=== PATIENT | female | born 1990 | race Caucasian/White ===

== ENCOUNTER 2018-03-22 11:40 | Inpatient (IN) | payer OTHER ==
[~2018-03-22] VITALS: Ht 157.5 cm; Wt 111.1 kg
[~2018-03-22 11:40] MED LIST: FERR325E14 PO; ORE25 PO; VITD1000 PO
[2018-03-22 12:12] VITALS: BP 132/77
--- NOTE | 2018-03-22 12:55 | NUR ---
PT AMBULAES TO BED 12, REPORT GIVEN TO DOLORES FALK
--- NOTE | 2018-03-22 12:56 | NUR ---
27Y/F C/O VAGINAL BLEEDING. PT STATES " SHE HAS VAGINAL BLEEDING WITH DIZINESS, NAUSEA, HEAD ACHE, WITH INTERMITTENT CHEST PAIN X 3 MONTHS; DENIES CHEST PAIN AT THIS TIME; DENIES AB PAIN AT THIS TIME. PT'S SKIN IS PINK/WARM/DRY; AAOX4 WITH EVEN AND STEADY GAIT; LUNGS CLEAR BL; HR EVEN AND REGULAR; PATIENT STATES PAIN OF 0/10 AT THIS TIME; VSS; PATIENT POSITIONED FOR COMFORT; HOB ELEVATED; BEDRAILS UP X1; BED DOWN. ER MD MADE AWARE OF PT STATUS. HX; HTN RX; HYDROCHLOROTHIAZIDE
--- NOTE | 2018-03-22 13:04 | NUR ---
Patient being evaluated by physician at bedside.
[2018-03-22] MEDS ORDERED: NACL 0.9% 1,000 ML IV ONE (13:05)
[2018-03-22 14:12] LABS: BASOPHILS # (AUTO) 0.1 K/uL (0.00-0.22); BASOPHILS % (AUTO) 1.1 % (0.0-2.0); EOSINOPHILS # (AUTO) 0.2 K/uL (0-0.4); EOSINOPHILS % (AUTO) 3.1 % (0.0-4.0); HEMATOCRIT 25.4 % (36-48); HEMOGLOBIN 7.5 g/dL (12.0-16.0); LYMPHOCYTES # (AUTO) 2.2 K/uL (2.5-16.5); LYMPHOCYTES % (AUTO) 30.5 % (20.5-51.1); MEAN CORPUSCULAR HEMOGLOBIN 17 pg (27-31); MEAN CORPUSCULAR HGB CONC 29 g/dL (33-37); MEAN CORPUSCULAR VOLUME 57.6 fL (80-94); MONOCYTES # (AUTO) 0.5 K/uL (0.8-1.0); MONOCYTES % (AUTO) 7.6 % (1.7-9.3); NEUTROPHILS # (AUTO) 4.2 K/uL (1.8-7.7); NEUTROPHILS % (AUTO) 57.7 % (42.2-75.2); PLATELET COUNT (AUTO) 400 K/uL (140-450); RED BLOOD CELL COUNT(AUTO) 4.41 MIL/uL (4.20-5.40); WHITE BLOOD COUNT (AUTO) 7.2 K/uL (4.8-10.8)
[2018-03-22 14:33] LABS: ANION GAP 14.9 (8-16); CARBON DIOXIDE 25.4 mmol/L (21-32); CREATININE 0.7 mg/dL (0.6-1.3); POTASSIUM 3.3 mmol/L (3.5-5.1)
[2018-03-22 14:44] LABS: ALBUMIN 3.6 g/dL (3.4-5.0); TOTAL BILIRUBIN 0.2 mg/dL (0.0-1.0)
[2018-03-22 14:54] LABS: PROTHROMBIN TIME 9.9 secs (10.8-13.4)
--- NOTE | 2018-03-22 16:00 | NUR ---
Note undalexandra in EDM - 03/22/18 at 1625 by MEDFL Patient discharged with v/s stable. Written and verbal after care instructions given and explained. Patient alert, oriented and verbalized understanding of instructions. Ambulatory with steady gait. All questions addressed prior to discharge. ID band removed. Patient advised to follow up with PMD. Rx of tramadol, zofran given. Patient educated on indication of medication including possible reaction and side effects. Opportunity to ask questions provided and answered.
[2018-03-22] MEDS ORDERED: MORPHINE SULFATE 2 MG/ML SYR IVP PRN (16:45)
[2018-03-22] MEDS ORDERED: ACETAMINOPHEN 325 MG TAB PO PRN (16:45)
[2018-03-22] MEDS ORDERED: ONDANSETRON 4 MG/2 ML VIAL IVP PRN (16:45)
[2018-03-22] MEDS ORDERED: LORazepam 2 MG/ML VIAL IVP PRN (16:45)
--- NOTE | 2018-03-22 18:10 | NUR ---
Patient will be admitted to care of . Admited to icu. Will go to room 3. Belongings list completed. Report to floyd moctezuma.
--- NOTE | 2018-03-22 18:20 | NUR ---
RECEIVED PATIENT FROM ED NURSE PER JUSTYNA, AWAKE, ORIENTED TO PLACE DATE AND TIME. ABLE TO MAKE NEEDS KNOWN. ORIENTED TO UNIT. CALL LIGHT WITHIN REACH. SAFETY MEASURES IN BED. NO COMPLAINTS OF ANY PAIN AT THIS TIME.
--- NOTE | 2018-03-22 19:27 | NUR ---
REPORT GIVEN TO MS RN. PATIENT IN STABLE CONDITION.
--- NOTE | 2018-03-22 19:30 | NUR ---
RECEIVED REPORT FROM ICU NURSE AT BEDSIDE FOR CONTINUITY OF CARE. PT AAOX4. PT IV NOTED LAC 20G LR 100ML/HR. NO SOB NO S/S OF DISTRESS ON RA. BED LOWERED PT ORIENTED TO ROOM. CALL LIGHT WITHIN REACH WILL CONTINUE TO MONITOR.
[2018-03-22 20:00] VITALS: BP 115/70
[2018-03-22] MEDS: LACTATED RINGERS 1,000 ML IV SCH (20:49)
--- NOTE | 2018-03-22 21:50 | NUR ---
GAVE TYLENOL FOR VEGA. PT IS SLEEPING AT THE MOMENT. NO PAIN. WILL CONTINUE TO MONITOR.
[2018-03-23] MEDS: LACTATED RINGERS 1,000 ML IV SCH ×2 (06:22→12:39)
[2018-03-23 06:55] LABS: BASOPHILS # (AUTO) 0.1 K/uL (0.00-0.22); EOSINOPHILS # (AUTO) 0.2 K/uL (0-0.4); EOSINOPHILS % (AUTO) 2.9 % (0.0-4.0); HEMATOCRIT 23.7 % (36-48); HEMOGLOBIN 7.1 g/dL (12.0-16.0); LYMPHOCYTES % (AUTO) 33.4 % (20.5-51.1); MEAN CORPUSCULAR HEMOGLOBIN 17 pg (27-31); MEAN CORPUSCULAR HGB CONC 30 g/dL (33-37); MONOCYTES # (AUTO) 0.4 K/uL (0.8-1.0); MONOCYTES % (AUTO) 6.4 % (1.7-9.3); NEUTROPHILS # (AUTO) 3.4 K/uL (1.8-7.7); NEUTROPHILS % (AUTO) 56.3 % (42.2-75.2); PLATELET COUNT (AUTO) 374 K/uL (140-450); RED BLOOD CELL COUNT(AUTO) 4.09 MIL/uL (4.20-5.40); RED CELL DISTRIBUTION WIDTH 21.1 % (11.6-13.7); WHITE BLOOD COUNT (AUTO) 6.1 K/uL (4.8-10.8)
--- NOTE | 2018-03-23 07:30 | NUR ---
ENDORSED REPORT TO DAYSHIFT NURSE AT BEDSIDE FOR CONTINUITY OF CARE.
--- NOTE | 2018-03-23 07:31 | NUR ---
RECEIVED PT FROM CORK INSULATOR NURSE, PT IS ASLEEP AND LYING ON THE BED WITH SIDE RAILS UP AND CALL LIGHT WITHIN REACH, RESPIRATIONS EVEN AND NO SIGN OF DISTRESS NOTED. PT HAS AN IV LINE IN PLACE AT THE LEFT AC G. 22, INTACT WITH NS AT 100ML/HR. WILL CONTINUE TO MONITOR.
[2018-03-23 08:00] VITALS: BP 101/71
--- NOTE | 2018-03-23 08:00 | NUR ---
PT IS AWAKE AND VITAL SIGNS TAKEN AND IS STABLE. PT DENIES PAIN AND PLAN OF CARE WAS DISCUSSED AND PT VERBALIZED UNDERSTANDING. NO SIGN OF DISTRESS NOTED AND WILL CONTINUE TO MONITOR.
[2018-03-23 09:00] LABS: ALBUMIN 3.4 g/dL (3.4-5.0); ANION GAP 12.9 (8-16); CARBON DIOXIDE 27.8 mmol/L (21-32); CREATININE 0.7 mg/dL (0.6-1.3); MAGNESIUM 1.9 mg/dL (1.8-2.4); POTASSIUM 3.7 mmol/L (3.5-5.1); TOTAL BILIRUBIN 0.3 mg/dL (0.0-1.0)
--- NOTE | 2018-03-23 09:19 | NUR ---
PATIENT HAS BEEN SCREENED AND CATEGORIZED HIGH NUTRITION RISK. PATIENT WILL BE SEEN WITHIN 1-2 DAYS OF ADMISSION. 03/23/18 03/24/[address]
--- NOTE | 2018-03-23 10:00 | NUR ---
PT IS AWAKE AND LYING ON THE BED, WITH FAMILY MEMBERS ON THE BEDSIDE, ASSESSED PT FOR THE BLEEDING AND PAD CHANGE. PT HAS MINIMAL SCANT DISCHARGE ON THE PAD, REDDISH TO BROWNISH COLOR. NO SIGN OF DISTRESS NOTED ON THE PT. WILL MONITOR.
--- NOTE | 2018-03-23 11:50 | NUR ---
FAXED INITIAL REVIEW TO [facility] [phone] PHONE [phone]
[2018-03-23 16:00] VITALS: BP 117/78
--- NOTE | 2018-03-23 16:05 | NUR ---
DR. SALAZAR IS IN THE PT'S ROOM AND TALKING TO THE PT AND TELLING THE PT THAT HER INSURANCE COMPANY APPROVED HER TRANSFER TO A [facility]. PT VERBALIZED UNDERSTANDING TO THE MD.
--- NOTE | 2018-03-23 17:00 | NUR ---
BLOOD TRANSFUSION WAS STARTED TO THE PT BY DAR BERNAL WITNESSED BY DOLORES GIORDANO PER CHARGE NURSE, TRAV'S INSTRUCTION. VITAL SIGNS WAS TAKEN AND NO SIGN OF DISTRESS NOTED ON THE PT. WILL MONITOR PT FOR THE COURSE OF THE BLOOD TRANSFUSION
--- NOTE | 2018-03-23 19:25 | NUR ---
ENDORSED PT TO SAMPLE COLLECTOR NURSESHAYLEE FOR CONTINUITY OF CARE. PT STILL HAS THE BLOOD TRANSFUSION ON GOING. PT IS STABLE AT THIS TIME WITH FAMILY ON THE BEDSIDE.
--- NOTE | 2018-03-23 19:30 | NUR ---
RECEIVED REPORT FROM [facility] NURSE AT FOR CONTINUITY OF CARE. PT AAOX4. PT IV RAC 20G INFUSING 1 UNIT OF PRBC. NO SOB NO S/S OF DISTRESS ON 2L O2 NC. BED LOWERED CALL LIGHT WITHIN REACH WILL CONTINUE TO MONITOR.
[2018-03-23 20:00] VITALS: BP 98/61
--- NOTE | 2018-03-23 20:00 | NUR ---
RECEIVED CALL FROM [facility] TO LET ME KNOW THEY FOUND A PT BED FOR TRANSFER. PT WILL BE TRANSFERED TO [facility] IN [place].
--- NOTE | 2018-03-23 21:05 | NUR ---
END OF BLOOD TRANFUSION. PT RECEIVED 1 UNIT OF PRBC.
--- NOTE | 2018-03-23 21:06 | NUR ---
CALLED [facility] SPOKE TO [facility] [phone]. AT [facility] TO GIVE REPORT ON PT. PT WILL BE GOING TO RM 220-A WITH [facility] AT 2200.
[2018-03-23 21:31] VITALS: BP 118/76
--- NOTE | 2018-03-23 22:35 | NUR ---
[facility] READY FOR DIRECTOR OF HEAD START. PT IS READY TO GO WITH PINK [place] AND PINK [place]ANK[place]. PT ARM BAND CUT OFF. BELONGINGS AND TRANSFER PAPER WORK WITH PT. PT AAOX4. NO SOB NO S/S OF DISTRESS. OFF THE FLOOR AT 2235
== END 2018-03-23 22:35 | disposition short-term general hospital (02) | DRG 760 ==
LOC: MED 11:40 → MIC 17:27 → MTU 19:15
PROVIDERS: ADMIT Internal Medicine Pulmonary Disease; ATTEND Internal Medicine Pulmonary Disease
PROC: 30233N1 Transfusion of Nonautologous Red Blood Cells into Peripheral Vein, Percutaneous Approach (ICD-10-PCS; principal; 2018-03-23)
DX: N92.0 Excessive and frequent menstruation with regular cycle (principal); D62 Acute posthemorrhagic anemia; Z68.41 Body mass index [BMI] 40.0-44.9, adult; E66.9 Obesity, unspecified; Z88.1 Allergy status to other antibiotic agents; Z91.02 Food additives allergy status
CPT/HCPCS: 36415; 76856; 80053; 81025; 83735; 85025; 85610; 85730; 86886; 86900; 86901; 86920; 87081; 96360; 99285; J7030; J7120; P9016; Q0092